=== PATIENT | male | born 1955 | race Caucasian/White ===

== ENCOUNTER 2017-08-02 18:07 | Emergency (ER) | payer MEDICARE, MEDICAID, SELFPAY ==
[2017-08-02 18:08] VITALS: BP 177/104; PULSE 102; RESP 18; TEMP 37; O2SAT 98; BMI 23.6
--- NOTE | 2017-08-02 18:43 | PC.NURSE ---
PT BECAME VERBALLY AGGRESSIVE TOWARD STAFF, POLICE CALLED. PT LEFT WITHOUT BEING SEEN BY PHYSICIAN. PT ENCOURAGED NOT TO LEAVE. PT ABRUPTLY LEFT, UNWILLING TO BE DISCHARGED OR SIGN AMA FORMS. PT DENIES SI/HI, AVH BEFORE LEAVING. NO IV ACCESS.
== END 2017-08-02 18:40 | disposition left against medical advice (07) ==
LOC: ER 18:26
PROVIDERS: Emergency Provider Emergency Medicine; Family Provider Family Medicine
DX: Z53.29 Procedure and treatment not carried out because of patient's decision for other reasons (principal)
CPT/HCPCS: 99283